=== PATIENT | female | born 1985 | race Caucasian/White ===

== ENCOUNTER → 2023-01-20 | Outpatient (CLI) | payer BC ==
[~2023-01-20] MED LIST: MOTRIN 800800 MG/TAB PO; [UNRECOGNIZED DRUG - OTHER] PO
--- NOTE | 2023-01-20 16:38 | NUR ---
Pt, Mini Escobar, presents to walk-in clinic with 5 day old baby boy, Yoni Escobar, for a evaluation. Pt states she is having trouble with latching, engorgement, and Yoni has lost 11% from . Yoni was born on [birth year] and weighed 8# 8.9oz (3880 gms). Because of jaundice pt has been supplementing Yoni with 0.5oz per feeding, and was advised at his appt with Dr. Barron to increase supplement because of his jaundice and weight loss. At this time Yoni weighs 7# 8.2oz (3408 gms), for a 12% loss from . Yoni had his bilirubin checked earlier today and pt states it is stabilizing so Yoni does not need it re-checked tomorrow. Pt reports Yoni's voids are concentrated but adeqate in number, he has a good void while here. He also has a good stool that is green in color with some yellow tints. LC notes pt's breasts are pretty engorged, she states she pumped 8oz this morning. Because of this fullness, getting Yoni to get a deep latch is difficult. With LC's assist Yoni was able to latch. LC reviews areola compression and bringing Yoni to the breast in a fashion that gets the nipple deeper in his mouth. Occassional swallows noted, but Yoni's effort isn't consistently strong. After Yoni has a gain of 24gms (0.8oz). Discussion with pt that with the jaundice and weight loss Yoni does not have as strong of an effort as he will once these concerns are resolved. Pt advised to breastfeed, pump prior to latching as needed to soften breast to facilitate latching. Supplement 1oz EBM p , and pump a couple ounces after to help manage engorgement. POC: Breastfeed, supplement 1oz EBM p , pump. F/U: Walk-in BF clinic in 5 days. Questions invited and answered.
== END ==
LOC: LAC 09:19
DX: Z39.1 Encounter for care and examination of lactating mother (principal); Z71.89 Other specified counseling